=== PATIENT | female | born 1945 | race Caucasian/White ===

== ENCOUNTER 2019-05-05 14:50 | Inpatient (IN) ==
[2019-05-06] MEDS: *HR* HYDROcodone/Acet 7.5/325 mg TABLET PO PRN ×2 (00:07→12:38)
[2019-05-06 05:43] LABS: Basophils % 0.4 %; Eosinophils # 0.2 K/mcL (0.0-0.6); Eosinophils % 2.9 %; Hematocrit 27.8 % (35.3-44.9); Hemoglobin 9.2 g/dL (11.5-15.4); Immature Granulocytes % 0.7 % (0-4); Lymphocytes # 1.4 K/mcL (0.6-4.6); Lymphocytes % 24.5 %; Mean Corpuscular HGB Conc 33.1 g/dL (31.6-35.5); Mean Corpuscular Volume 90.6 fL (83.0-100.0); Mean Platelet Volume 9.9 fL (9.4-12.4); Monocytes # 0.6 K/mcL (0.0-1.3); Monocytes % 10.8 %; Neutrophils # 3.4 K/mcL (1.6-8.9); Platelet Count 298 K/mcL (140-400); Red Blood Count 3.07 M/mcL (3.82-4.97); Red Cell Distribution Width 12.4 % (11.5-14.5); Segmented Neutrophils % 60.7 %; White Blood Count 5.6 K/mcL (4.3-11.1)
[2019-05-06] MEDS: *HR* HYDROcodone/Acet 10/325 mg TABLET PO PRN (06:25)
[2019-05-06] MEDS: Psyllium 1 PACKET POWD.PACK PO SCH (09:39)
[2019-05-06] MEDS: Sennosides/Docusate Sodium TABLET PO SCH ×2 (09:39→21:42)
[2019-05-06] MEDS: Loratadine 10 MG TABLET PO SCH (09:39)
[2019-05-06] MEDS: hydroCHLOROthiazide 25 MG TABLET PO SCH (09:39)
[2019-05-06] MEDS: *HR* HYDROcodone/Acet 5/325 mg TABLET PO PRN (18:36)
[2019-05-07] MEDS: *HR* HYDROcodone/Acet 7.5/325 mg TABLET PO PRN (01:09)
[2019-05-07] MEDS: *HR* Enoxaparin 40 MG/0.4 ML SYRINGE SQ SCH (05:36)
[2019-05-07] MEDS: Sennosides/Docusate Sodium TABLET PO SCH ×2 (07:45→19:28)
[2019-05-07] MEDS: *HR* HYDROcodone/Acet 10/325 mg TABLET PO PRN ×2 (07:45→16:59)
[2019-05-07] MEDS: hydroCHLOROthiazide 25 MG TABLET PO SCH (07:46)
[2019-05-07] MEDS: Psyllium 1 PACKET POWD.PACK PO SCH (07:46)
[2019-05-07] MEDS: Loratadine 10 MG TABLET PO SCH (07:46)
[2019-05-08] MEDS: *HR* HYDROcodone/Acet 10/325 mg TABLET PO PRN ×4 (00:30→23:05)
[2019-05-08] MEDS: *HR* Enoxaparin 40 MG/0.4 ML SYRINGE SQ SCH (05:14)
[2019-05-08 05:32] LABS: Hematocrit 28.1 % (35.3-44.9); Mean Corpuscular Hemoglobin 29.1 pg (28.0-33.3); Mean Corpuscular Volume 90.9 fL (83.0-100.0); Mean Platelet Volume 9.4 fL (9.4-12.4); Platelet Count 322 K/mcL (140-400); Red Blood Count 3.09 M/mcL (3.82-4.97); Red Cell Distribution Width 12.6 % (11.5-14.5)
[2019-05-08 05:49] LABS: Alanine Aminotransferase 19 Units/L (7-52); Albumin 3.7 g/dL (3.5-5.7); Albumin/Globulin Ratio 1.2 (1.1-2.2); Alkaline Phosphatase 100 Units/L (34-104); Aspartate Amino Transferase 17 Units/L (13-39); BUN/Creatinine Ratio 22 (6-26); Bilirubin,Total 0.3 mg/dL (0.3-1.0); Blood Urea Nitrogen 21 mg/dL (8-23); Calcium 9.5 mg/dL (8.6-10.3); Carbon Dioxide 30 mEq/L (23-29); Chloride 100 mEq/L (98-107); Glucose 113 mg/dL (70-105); Osmolality,Calculated 288 (280-300); Potassium 3.4 mEq/L (3.5-5.1); Sodium 137 mEq/L (136-145); Total Protein 6.7 g/dL (6.4-8.9); eGFR For African Americans > 60 (> 60); eGFR For Non-African Americans 58 (> 60)
[2019-05-08] MEDS: Sennosides/Docusate Sodium TABLET PO SCH ×2 (08:57→19:27)
[2019-05-08] MEDS: hydroCHLOROthiazide 25 MG TABLET PO SCH (08:57)
[2019-05-08] MEDS: Loratadine 10 MG TABLET PO SCH (08:58)
[2019-05-08] MEDS: Psyllium 1 PACKET POWD.PACK PO SCH (08:58)
[2019-05-09] MEDS: *HR* Enoxaparin 40 MG/0.4 ML SYRINGE SQ SCH (04:59)
[2019-05-09] MEDS: *HR* HYDROcodone/Acet 10/325 mg TABLET PO PRN ×3 (04:59→19:42)
[2019-05-09] MEDS: hydroCHLOROthiazide 25 MG TABLET PO SCH (09:19)
[2019-05-09] MEDS: Loratadine 10 MG TABLET PO SCH (09:19)
[2019-05-09] MEDS: Psyllium 1 PACKET POWD.PACK PO SCH (09:20)
[2019-05-09] MEDS: Sennosides/Docusate Sodium TABLET PO SCH ×2 (11:27→19:42)
[2019-05-10] MEDS: *HR* HYDROcodone/Acet 10/325 mg TABLET PO PRN ×3 (02:51→15:37)
[2019-05-10] MEDS: *HR* Enoxaparin 40 MG/0.4 ML SYRINGE SQ SCH (05:53)
[2019-05-10] MEDS: Psyllium 1 PACKET POWD.PACK PO SCH (08:21)
[2019-05-10] MEDS: Loratadine 10 MG TABLET PO SCH (08:21)
[2019-05-10] MEDS: hydroCHLOROthiazide 25 MG TABLET PO SCH (08:21)
[2019-05-10] MEDS: Sennosides/Docusate Sodium TABLET PO SCH ×2 (08:21→19:29)
[2019-05-10] MEDS: Aspirin Enteric Coated 81 MG Tablet PO SCH (15:37)
[2019-05-11] MEDS: *HR* HYDROcodone/Acet 10/325 mg TABLET PO PRN ×4 (01:19→22:37)
[2019-05-11] MEDS: *HR* Enoxaparin 40 MG/0.4 ML SYRINGE SQ SCH (05:27)
[2019-05-11] MEDS: Aspirin Enteric Coated 81 MG Tablet PO SCH (08:15)
[2019-05-11] MEDS: Loratadine 10 MG TABLET PO SCH (08:15)
[2019-05-11] MEDS: Sennosides/Docusate Sodium TABLET PO SCH ×2 (08:15→20:32)
[2019-05-11] MEDS: hydroCHLOROthiazide 25 MG TABLET PO SCH (08:15)
[2019-05-11] MEDS: Psyllium 1 PACKET POWD.PACK PO SCH (08:16)
[2019-05-12] MEDS: *HR* Enoxaparin 40 MG/0.4 ML SYRINGE SQ SCH (05:31)
[2019-05-12] MEDS: *HR* HYDROcodone/Acet 10/325 mg TABLET PO PRN ×3 (05:31→18:33)
[2019-05-12 07:35] LABS: Hematocrit 28.9 % (35.3-44.9); Hemoglobin 9.4 g/dL (11.5-15.4); Mean Corpuscular HGB Conc 32.5 g/dL (31.6-35.5); Mean Corpuscular Hemoglobin 29.6 pg (28.0-33.3); Mean Corpuscular Volume 90.9 fL (83.0-100.0); Mean Platelet Volume 9.6 fL (9.4-12.4); Platelet Count 309 K/mcL (140-400); Red Blood Count 3.18 M/mcL (3.82-4.97); White Blood Count 4.6 K/mcL (4.3-11.1)
[2019-05-12 07:48] LABS: BUN/Creatinine Ratio 22 (6-26); Blood Urea Nitrogen 20 mg/dL (8-23); Calcium 9.5 mg/dL (8.6-10.3); Carbon Dioxide 31 mEq/L (23-29); Chloride 100 mEq/L (98-107); Glucose 105 mg/dL (70-105); Magnesium 1.9 mg/dL (1.6-2.6); Osmolality,Calculated 285 (280-300); Potassium 3.8 mEq/L (3.5-5.1); Sodium 136 mEq/L (136-145); eGFR For African Americans > 60 (> 60); eGFR For Non-African Americans > 60 (> 60)
[2019-05-12] MEDS: Sennosides/Docusate Sodium TABLET PO SCH ×2 (08:35→20:28)
[2019-05-12] MEDS: Aspirin Enteric Coated 81 MG Tablet PO SCH (08:35)
[2019-05-12] MEDS: hydroCHLOROthiazide 25 MG TABLET PO SCH (08:35)
[2019-05-12] MEDS: Psyllium 1 PACKET POWD.PACK PO SCH (08:35)
[2019-05-12] MEDS: Loratadine 10 MG TABLET PO SCH (08:35)
[2019-05-13] MEDS: *HR* HYDROcodone/Acet 10/325 mg TABLET PO PRN (00:43)
[2019-05-13] MEDS: *HR* Enoxaparin 40 MG/0.4 ML SYRINGE SQ SCH (05:16)
[2019-05-13 07:18] VITALS: BP 124/76
[2019-05-13] MEDS: hydroCHLOROthiazide 25 MG TABLET PO SCH (08:05)
[2019-05-13] MEDS: Loratadine 10 MG TABLET PO SCH (08:05)
[2019-05-13] MEDS: Sennosides/Docusate Sodium TABLET PO SCH (08:05)
[2019-05-13] MEDS: Aspirin Enteric Coated 81 MG Tablet PO SCH (08:06)
[2019-05-13] MEDS: Psyllium 1 PACKET POWD.PACK PO SCH (08:06)
[2019-05-13] MEDS: *HR* HYDROcodone/Acet 5/325 mg TABLET PO PRN ×2 (08:06→14:13)
== END 2019-05-13 15:00 | disposition home health service (06) | DRG 561 ==
LOC: INPGRE 20:53
PROVIDERS: ADMIT Family Medicine; ATTEND Family Medicine